=== PATIENT | male | born 1950 | race African-American/Black ===

== ENCOUNTER 2018-01-30 03:48 | Emergency (ER) | payer MEDICARE, OTHER ==
[~2018-01-30] VITALS: Ht 175.3 cm; Wt 106.6 kg
[2018-01-30 04:10] VITALS: BP 195/89
--- NOTE | 2018-01-30 04:10 | PHYS DOC ---
Past Medical History Past Medical History: Diabetes-Type II, Hypertension Past Surgical History: Cholecystectomy Smoking: Cigarettes (The patient is a nonsmoker.) Adult General Chief Complaint Chief Complaint: FLANK PAIN HPI HPI Patient is a pleasant 67-year-old male who presents to the emergency department for evaluation. He states for the past day and a half or so he has had some left flank pain which radiates around towards the left side of his back. He denies any other symptoms. He denies any nausea, vomiting, diarrhea, changes in bowel habits, hematuria, or dysuria. Has not had any midline back pain, numbness or weakness. He denies any chest pain shortness of breath. There are no alleviating or exacerbating factors to his symptoms. Review of Systems Review of Systems Constitutional: Denies fever or chills [] Eyes: Denies change in visual acuity, redness, or eye pain [] HENT: Denies nasal congestion or sore throat [] Respiratory: Denies cough or shortness of breath [] Cardiovascular: The patient denies any shortness of breath, chest pain, palpitations, or orthopnea [] GI: Denies nausea, vomiting, bloody stools or diarrhea [] : Denies dysuria or hematuria and denies groin pain or radiation of the pain towards the groin.[] Musculoskeletal: Denies back pain or joint pain [] Integument: Denies rash or skin lesions [] Neurologic: Denies headache, focal weakness or sensory changes [] Endocrine: Denies polyuria or polydipsia [] All other systems were reviewed and found to be within normal limits, except as documented in this note. Current Medications Current Medications Current Medications Medications (Trade) Dose Ordered Sig/Nicole Start Time Stop Time Status Last Admin Dose Admin Morphine Sulfate (Morphine Sulfate) 4 mg PRN Q15MIN PRN 01/30/18 04:15 01/31/18 04:14 01/30/18 04:49 4 MG Ondansetron HCl (Zofran) 4 mg 1X ONCE 01/30/18 04:30 01/30/18 04:31 DC 01/30/18 04:30 4 MG Sodium Chloride 1,000 ml @ 100 mls/hr Q10H 01/30/18 04:30 01/30/18 14:29 01/30/18 04:30 100 MLS/HR Allergies Allergies Allergies Coded Allergies Type Severity Reaction Last Updated Verified No Known Drug Allergies 01/30/18 No Physical Exam Physical Exam PHYSICAL EXAM: CONSTITUTIONAL: Well developed, well nourished HEAD: normocephalic, atraumatic EENT: PERRL, EOMI. Conjunctivae normal color, sclerae non-icteric; moist mucous membranes. NECK: Supple, non-tender; no meningismus. LUNGS: Lungs CTA, breathing even and unlabored. Normal air movement. HEART: Regular rate and rhythm, no murmur CHEST: No deformity; non-tender ABDOMEN: The abdomen is soft, there is mild left upper abdominal/left flank tenderness to palpation without rebound or guarding. The remainder the abdomen is soft and non-tender, no masses or bruits. Normal bowel sounds are present. EXTREM: Normal ROM; no deformity, no calf tenderness. Normal pulses palpable in all extremities. There is no pedal edema. SKIN: No rash; no diaphoresis NEURO: Alert; normal speech and cognition; CN's grossly intact; strength grossly intact without focal deficit. BACK: There is mild left-sided CVA TTP. Current Patient Data Vital Signs Vital Signs Date Time Temp Pulse Resp B/P (MAP) Pulse Ox O2 Delivery O2 Flow Rate FiO2 01/30/18 04:10 97.7 78 195/89 (124) 97 Room Air 97.7 Lab Values Laboratory Tests Test 01/30/18 04:01 White Blood Count 8.4 x10^3/uL (4.0-11.0) Red Blood Count 6.30 x10^6/uL (4.30-5.70) H Hemoglobin 13.4 g/dL (13.0-17.5) Hematocrit 42.2 % (39.0-53.0) Mean Corpuscular Volume 67 fL (79-100) L Mean Corpuscular Hemoglobin 21 pg (25-35) L Mean Corpuscular Hemoglobin Concent 32 g/dL (31-37) Red Cell Distribution Width 17.4 % (11.5-14.5) H Platelet Count 210 x10^3/uL (140-400) Neutrophils (%) (Auto) 67 % (31-73) Lymphocytes (%) (Auto) 16 % (24-48) L Monocytes (%) (Auto) 13 % (0-9) H Eosinophils (%) (Auto) 3 % (0-3) Basophils (%) (Auto) 1 % (0-3) Neutrophils # (Auto) 5.6 x10^3uL (1.8-7.7) Lymphocytes # (Auto) 1.4 x10^3/uL (1.0-4.8) Monocytes # (Auto) 1.1 x10^3/uL (0.0-1.1) Eosinophils # (Auto) 0.3 x10^3/uL (0.0-0.7) Basophils # (Auto) 0.1 x10^3/uL (0.0-0.2) Platelet Estimate Pending Urine Collection Type Clean catch Urine Color Yellow Urine Clarity Clear Urine pH 5.0 Urine Specific [place] 1.025 Urine Protein Negative mg/dL (NEG-TRACE) Urine Glucose (UA) Negative mg/dL (NEG) Urine Ketones (Stick) Negative mg/dL (NEG) Urine Blood Moderate (NEG) Urine Nitrite Negative (NEG) Urine Bilirubin Negative (NEG) Urine Urobilinogen Dipstick 1.0 mg/dL (0.2 mg/dL) Urine Leukocyte Esterase Moderate (NEG) Urine RBC 6-10 /HPF (0-2) Urine WBC 1-4 /HPF (0-4) Urine Squamous Epithelial Cells Occ /LPF Urine Bacteria 0 /HPF (0-FEW) Urine Mucus Mod /LPF Sodium Level 143 mmol/L (136-145) Potassium Level 4.2 mmol/L (3.5-5.1) Chloride Level 101 mmol/L (98-107) Carbon Dioxide Level 33 mmol/L (21-32) H Anion Gap 9 (6-14) Blood Urea Nitrogen 23 mg/dL (8-26) Creatinine 1.1 mg/dL (0.7-1.3) Estimated GFR (Cockcroft-Gault) 80.3 BUN/Creatinine Ratio 21 (6-20) H Glucose Level 89 mg/dL (70-99) Calcium Level 10.2 mg/dL (8.5-10.1) H Total Bilirubin 0.7 mg/dL (0.2-1.0) Aspartate Amino Transferase (AST) 17 U/L (15-37) Alanine Aminotransferase (ALT) 18 U/L (16-63) Alkaline Phosphatase 77 U/L (46-116) Troponin I Quantitative < 0.017 ng/mL (0.000-0.055) Total Protein 7.6 g/dL (6.4-8.2) Albumin 4.2 g/dL (3.4-5.0) Albumin/Globulin Ratio 1.2 (1.0-1.7) Lipase 126 U/L (73-393) Laboratory Tests 01/30/18 04:01 Laboratory Tests 01/30/18 04:01 EKG EKG [Normal sinus rhythm with a normal rate, normal axis, normal intervals, there are no acute ischemic ST/T changes.] Radiology/Procedures Radiology/Procedures [PROCEDURE: CT ABDOMEN PELVIS WO CONTRAST PQRS Compliance statement: One or more of the following individualized dose reduction techniques were utilized for this examination: 1. Automated exposure control. 2. Adjustment of the mA and/or kV according to patient size. 3. Use of iterative reconstruction technique. Indication:left flank pain TECHNIQUE: CT abdomen and pelvis without IV contrast with multiplanar reformats. COMPARISON: None FINDINGS: Limited evaluation of solid abdominal and pelvic organs due to lack of IV contrast. Heart is normal in size. No pericardial or pleural effusion. Clear lung bases. Noncontrast appearance of the liver, spleen, pancreas, adrenals within normal limits. 4.6 x 4.1 cm partially exophytic low attenuating lesion is seen in the posterior medial aspect of the right kidney. Punctate nonobstructing left renal stone measuring 7 mm. Obstructing 7 mm stone is seen in the left mid ureter causing moderate left-sided hydroureteronephrosis. Left perinephric inflammatory changes seen. No free pelvic fluid or ascites. No enlarged pelvic or retroperitoneal adenopathy. No bowel obstruction. Normal appendix. No pneumoperitoneum. No suspicious bony lesion. IMPRESSION: 1. Obstructing left mid ureteral stone with other nonobstructing left renal stone. 2. Right renal lesion most likely a simple to minimally comminuted cysts. However nonemergent ultrasound of the kidneys recommended for better evaluation.] Course & Med Decision Making Course & Med Decision Making Pertinent Labs and Imaging studies reviewed. (See chart for details) [5:40 AM: The patient's condition remained stable, and his pain is well- controlled at this time. His blood pressure improved from his initial arrival blood pressure, most recently 141/70. I discussed test results with the patient including the need for further outpatient evaluation of his right kidney. I discussed the etiology of his left flank pain, and the need for close urology follow-up. He is asymptomatic at this time, is showing no signs of infection, and appears comfortable. I believe outpatient follow-up is appropriate, although the size of some aches spontaneous passage unlikely. The patient will be started on Flomax to facilitate stone passage if it should move more distally , and the importance of prompt urology follow-up and return precautions were discussed in detail.] Dragon Disclaimer Dragon Disclaimer This electronic medical record was generated, in whole or in part, using a voice recognition dictation system. Departure Departure Impression: Primary Impression: Nephrolithiasis Disposition: HOME, SELF-CARE Condition: STABLE Referrals: JERICA BISWAS MD Patient Instructions: Kidney Stones Additional Instructions: Ibuprofen 400-600 mg every 6 hours as needed for pain. Use the prescribed pain medication as needed for pain not controlled by ibuprofen. This medication may cause drowsiness. Use caution while taking. Use of Flomax once daily, to help facilitate kidney stone passage of the stone should migrate further down towards the bladder. Further evaluation and follow-up with urology is warranted. Please call today to schedule an appointment. Scripts Hydrocodone/Apap 5-325 (NORCO 5-325 TABLET) 1 Each Tablet 1-2 TAB PO Q4-6HRS, #20 TAB Prov: BOB UPTON MD 01/30/18 Tamsulosin Hcl (FLOMAX) 0.4 Mg Cap.er.24h 1 CAP PO DAILY, #30 CAP 0 Refills Prov: BOB UPTON MD 01/30/18 BOB UPTON MD Jan 30, 2018 04:10
[2018-01-30] MEDS ORDERED: MORPHINE SULFATE 4 MG/ML VIAL. IV/SQ PRN (04:15)
[2018-01-30] MEDS ORDERED: ONDANSETRON PF 4 MG/2 ML VIAL. IV ONE (04:30)
[2018-01-30] MEDS ORDERED: IV NORMAL SALINE 1000ML BAG 1,000 ML IV SCH (04:30)
[2018-01-30 04:46] LABS: BASO # 0.1 x10^3/uL (0.0-0.2); BASO % 1 % (0-3); BILIRUBIN,URINE NEGATIVE (NEG); CLARITY,URINE CLEAR; COLOR,URINE YELLOW; EOS # 0.3 x10^3/uL (0.0-0.7); EOS % 3 % (0-3); HEMATOCRIT 42.2 % (39.0-53.0); HEMOGLOBIN 13.4 g/dL (13.0-17.5); LYMPH # 1.4 x10^3/uL (1.0-4.8); LYMPH % 16 % (24-48); MEAN CORPUSCULAR HEMOGLOBIN 21 pg (25-35); MEAN CORPUSCULAR HGB CONC 32 g/dL (31-37); MEAN CORPUSCULAR VOLUME 67 fL (79-100); MONO # 1.1 x10^3/uL (0.0-1.1); MONO % 13 % (0-9); NEUT # 5.6 x10^3uL (1.8-7.7); NEUT % 67 % (31-73); NITRITE,URINE NEGATIVE (NEG); PLATELET COUNT 210 x10^3/uL (140-400); PROTEIN,URINE NEGATIVE (NEG-TRACE); RED CELL DISTRIBUTION WIDTH 17.4 % (11.5-14.5); WHITE BLOOD COUNT 8.4 x10^3/uL (4.0-11.0)
[2018-01-30 04:55] LABS: BACTERIA,URINE 0 /HPF (0-FEW); SQUAMOUS EPITHELIAL CELL,UR OCC /LPF
--- NOTE | 2018-01-30 04:57 | RAD ---
PQRS Compliance statement: One or more of the following individualized dose reduction techniques were utilized for this examination: 1. Automated exposure control. 2. Adjustment of the mA and/or kV according to patient size. 3. Use of iterative reconstruction technique. Indication:left flank pain TECHNIQUE: CT abdomen and pelvis without IV contrast with multiplanar reformats. COMPARISON: None FINDINGS: Limited evaluation of solid abdominal and pelvic organs due to lack of IV contrast. Heart is normal in size. No pericardial or pleural effusion. Clear lung bases. Noncontrast appearance of the liver, spleen, pancreas, adrenals within normal limits. 4.6 x 4.1 cm partially exophytic low attenuating lesion is seen in the posterior medial aspect of the right kidney. Punctate nonobstructing left renal stone measuring 7 mm. Obstructing 7 mm stone is seen in the left mid ureter causing moderate left-sided hydroureteronephrosis. Left perinephric inflammatory changes seen. No free pelvic fluid or ascites. No enlarged pelvic or retroperitoneal adenopathy. No bowel obstruction. Normal appendix. No pneumoperitoneum. No suspicious bony lesion. IMPRESSION: 1. Obstructing left mid ureteral stone with other nonobstructing left renal stone. 2. Right renal lesion most likely a simple to minimally comminuted cysts. However nonemergent ultrasound of the kidneys recommended for better evaluation. Electronically signed by: Prashanth Jewell DO (01/30/2018 4:54 AM) [id number]
[2018-01-30 04:59] LABS: CALCIUM 10.2 mg/dL (8.5-10.1); CREATININE 1.1 mg/dL (0.7-1.3); GFR 80.3; POTASSIUM 4.2 mmol/L (3.5-5.1)
[2018-01-30 05:06] LABS: ALBUMIN 4.2 g/dL (3.4-5.0); ALBUMIN/GLOBULIN RATIO 1.2 (1.0-1.7); TOTAL BILIRUBIN 0.7 mg/dL (0.2-1.0); TOTAL PROTEIN 7.6 g/dL (6.4-8.2)
--- NOTE | 2018-01-30 05:13 | EKG ---
[facility] [address] [place] [address] Test Date: 2018-01-30 Test Time: 04:19:34 Pat Name: XIOMY SHEARER Department: Room: Gender: Burr Filer: PEDRO : 1950 Requested By: BOB UPTON Order Number: [id number] Reading MD: Gil Castellano Measurements Intervals [place] Rate: 72 P: 49 TN: 204 QRS: 13 QRSD: 78 T: 27 QT: 368 QTc: 408 Interpretive Statements SINUS RHYTHM Electronically Signed On 02-02-2018 12:06:31 CDT by Gil Castellano
[2018-01-30] MEDS ORDERED: TAMS0.4C97 PO (05:43)
[2018-01-30] MEDS ORDERED: HYDR-971 PO (05:44)
[2018-01-30 09:53] LABS: HYPOCHROMIA MOD; PLT ESTIMATE ADEQUATE (ADEQUATE)
[2018-01-30 09:54] LABS: ANISOCYTOSIS SLIGHT; MICROCYTOSIS MARKED
== END 2018-01-30 06:25 | disposition home or self-care (01) ==
LOC: ER 03:48
DX: N13.2 Hydronephrosis with renal and ureteral calculous obstruction (principal); I10 Essential (primary) hypertension; E11.9 Type 2 diabetes mellitus without complications; Z90.49 Acquired absence of other specified parts of digestive tract
CPT/HCPCS: 36415; 74176; 80053; 81001; 83690; 84484; 85025; 87086; 93005; 96374; 96375; 99285; J2270; J2405; J7030

== ENCOUNTER 2021-03-26 21:24 | Emergency (ER) | payer BC, MEDICARE ==
[~2021-03-26] VITALS: Ht 175.3 cm; Wt 110.0 kg
[~2021-03-26 21:24] MED LIST: HYDR-3164 PO; TAMS0.4C97 PO
[2021-03-26] MEDS ORDERED: CLINDAMYCIN 600MG PREMIX 50 ML IV ONE (23:00)
[2021-03-26] MEDS ORDERED: HYDROmorphone 2 MG/ML VIAL IVP ONE (23:00)
[2021-03-26 23:06] LABS: BASO # 0.1 x10^3/uL (0.0-0.2); BASO % 1 % (0-3); EOS # 0.2 x10^3/uL (0.0-0.7); EOS % 2 % (0-3); HEMATOCRIT 40.8 % (39.0-53.0); HEMOGLOBIN 12.7 g/dL (13.0-17.5); LYMPH # 1.1 x10^3/uL (1.0-4.8); LYMPH % 10 % (24-48); MEAN CORPUSCULAR HEMOGLOBIN 21 pg (25-35); MEAN CORPUSCULAR HGB CONC 31 g/dL (31-37); MEAN CORPUSCULAR VOLUME 67 fL (79-100); MONO # 0.9 x10^3/uL (0.0-1.1); MONO % 9 % (0-9); NEUT # 8.4 x10^3/uL (1.8-7.7); NEUT % 79 % (31-73); PLATELET COUNT 284 x10^3/uL (140-400); RED BLOOD COUNT 6.11 x10^6/uL (4.30-5.70); RED CELL DISTRIBUTION WIDTH 16.9 % (11.5-14.5); WHITE BLOOD COUNT 10.6 x10^3/uL (4.0-11.0)
--- NOTE | 2021-03-26 23:26 | RAD ---
EXAMINATION: CT NECK SOFT TISSUE WITHOUT CONTRAST CLINICAL HISTORY: Left maxillary dental abscess TECHNIQUE: Noncontrast axial images obtained through the cervical soft tissues with sagittal and felipe nal planar reconstructions. CT Dose Reduction Employed: One or more of the following individualized dose reduction techniques wer e utilized for this examination: 1. Automated exposure control 2. Adjustment of the mA and/or kV ac cording to patient size 3. Use of iterative reconstruction technique. COMPARISON: None. FINDINGS: Prominent streak artifact related to multiple dental fillings limit evaluation at the level of the mo uth. Tiny periapical cysts at what is thought to represent the left maxillary second bicuspid and left man dibular first molar. Mild hypoattenuation in the mandible at the expected level of the posterior ac ibular molars bilaterally. No no definitively visualize dental abscess. Mild mucoperiosteal thickening/secretions in the inferior bilateral maxillary sinuses. Multiple prominent bilateral cervical lymph nodes, likely reactive. No organized soft tissue collecti on. Vascular calcifications. Multilevel cervicothoracic degenerative changes. IMPRESSION: Tiny left maxillary and mandibular periapical cysts without definitive evidence of a dental abscess o n limited evaluation as described. Electronically signed by: Jasmeet Zavala DO (03/26/2021 11:24 PM) [facility]
[2021-03-26 23:30] VITALS: BP_DIAS 73
[2021-03-27 00:04] VITALS: BP_SYST 138
[2021-03-27 00:12] LABS: GFR 88.9; POTASSIUM 4.2 mmol/L (3.5-5.1)
[2021-03-27 00:26] LABS: PLT ESTIMATE ADEQUATE (ADEQUATE)
[2021-03-27 00:28] LABS: ANISOCYTOSIS MOD; HYPOCHROMIA MOD; MICROCYTOSIS PRESENT; POIKILOCYTOSIS PRESENT; ROULEAUX PRESENT
[2021-03-27] MEDS ORDERED: CLIN150C16 PO (00:28)
--- NOTE | 2021-03-27 00:28 | PHYS DOC ---
Past Medical History Past Medical History: Hypertension (ANEL HASKINS APRN) Past Surgical History: Cholecystectomy (ANEL HASKINS APRN) Smoking Status: Never Smoker Alcohol Use: Rarely Drug Use: None (ANEL HASKINS APRN) General Adult EDM: Chief Complaint: DENTAL PROBLEM HPI: HPI: Patient is a 70 year old male presents to the emergency department concerning increased swelling and pain to his face and jaw on the left. Patient reports he is being treated by dentist for a dental infection. Patient states he has completed a 2-week regimen of Keflex, started on Keflex and took it only for a few more days when his dentist changed his antibiotic regimen to Augmentin. Patient reports he took 2 doses of Augmentin today and 1 dose of [place] for pain, patient reports he is not getting any relief and feels his face is getting more swollen and more painful. Patient comes into the emergency department today for a reevaluation. Patient denies throat discomfort or difficulty breathing or swallowing. Denies tongue swelling. Denies recent fever or chills. Denies other physical complaints or physical concerns. (ANEL HASKINS APRN) Review of Systems: Review of Systems: 14 body systems of review of systems have been reviewed. See HPI for pertinent positives and negative responses, otherwise all other systems are negative, nonpertinent or noncontributory. Constitutional: Negative except as outlined in HPI above. Skin: Negative except as outlined in HPI above. Eyes: Negative except as outlined in HPI above. HENT: Negative except as outlined in HPI above. Respiratory: Negative except as outlined in HPI above. Cardiovascular: Negative except as outlined in HPI above. GI: Negative except as outlined in HPI above. : Negative except as outlined in HPI above. Musculoskeletal: Negative except as outlined in HPI above. Integument: Negative except as outlined in HPI above. Neurologic: Negative except as outlined in HPI above. Endocrine: Negative except as outlined in HPI above. Lymphatic: Negative except as outlined in HPI above. Psychiatric: Negative except as outlined in HPI above. (ANEL HASKINS APRN) Heart Score: C/O Chest Pain: No Risk Factors: Risk Factors: DM, Current or recent (<one month) smoker, HTN, HLP, family history of CAD, obesity. Risk Scores: Score 0 - 3: 2.5% MACE over next 6 weeks - Discharge Home Score 4 - 6: 20.3% MACE over next 6 weeks - Admit for Clinical Observation Score 7 - 10: 72.7% MACE over next 6 weeks - Early Invasive Strategies (ANEL HASKINS APRN) Current Medications: Current Medications Medications (Trade) Dose Ordered Sig/Nicole Start Time Stop Time Status Last Admin Dose Admin Clindamycin Phosphate 50 ml @ 100 mls/hr 1X ONCE 03/26/21 23:00 03/26/21 23:29 DC 03/26/21 23:06 100 MLS/HR Hydromorphone HCl (Dilaudid) 1 mg 1X ONCE 03/26/21 23:00 03/26/21 23:01 DC 03/26/21 23:10 1 MG (ANEL HASKINS APRN) Allergies: Allergies: Allergies Coded Allergies Type Severity Reaction Last Updated Verified lisinopril Allergy Severe HEAVY BREATHING 03/26/21 Yes iodine Allergy Intermediate SCRATCHY THROAT. 03/26/21 Yes shellfish derived Allergy Intermediate SCRATCY THROAT 03/26/21 Yes (ANEL HASKINS APRN) Physical Exam: PE: Constitutional: Well developed, well nourished, no acute distress, non-toxic appearance. 30-year-old male in no apparent distress. HENT: Normocephalic, atraumatic. Oropharynx pink, no deep tissue infectious process appreciated, no uvular edema or deviation, no laryngeal edema, bilateral tonsils within normal limits. The tongue is not swollen. Marked dental caries with swollen upper and lower gums on the left. No purulent drainage or draining abscess appreciated in the oral cavity. No drooling, no trismus. Bilateral TMs within normal limits. Marked maxillary facial swelling on the left skin erythematous and appear. No lymphadenopathy of the head or neck appreciated. Patient is speaking in normal voice tones. Eyes: Conjunctiva normal, no discharge. Satisfactory 6 cardinal eye movements, no periorbital edema appreciated Neck: Normal range of motion, no stridor. Cardiovascular: No cyanosis appreciated, distal cap refill less than 2 seconds. Lungs & Thorax: Patient is in no respiratory distress, no audible adventitious lung sounds appreciated. Abdomen: Nontender, no abnormalities noted. Skin: Warm, dry, no erythema, no rash. Back: No tenderness, no deformities. Extremities: No tenderness, no cyanosis, no clubbing, ROM intact, no edema. Neurologic: Alert and oriented X 3, normal motor function, normal sensory function, no focal deficits noted. Psychologic: Affect normal, judgement normal, mood normal. (ANEL HASKINS APRN) Current Patient Data: Labs: Laboratory Tests Test 03/26/21 22:50 White Blood Count 10.6 x10^3/uL (4.0-11.0) Red Blood Count 6.11 x10^6/uL (4.30-5.70) H Hemoglobin 12.7 g/dL (13.0-17.5) L Hematocrit 40.8 % (39.0-53.0) Mean Corpuscular Volume 67 fL (79-100) L Mean Corpuscular Hemoglobin 21 pg (25-35) L Mean Corpuscular Hemoglobin Concent 31 g/dL (31-37) Red Cell Distribution Width 16.9 % (11.5-14.5) H Platelet Count 284 x10^3/uL (140-400) Neutrophils (%) (Auto) 79 % (31-73) H Lymphocytes (%) (Auto) 10 % (24-48) L Monocytes (%) (Auto) 9 % (0-9) Eosinophils (%) (Auto) 2 % (0-3) Basophils (%) (Auto) 1 % (0-3) Neutrophils # (Auto) 8.4 x10^3/uL (1.8-7.7) H Lymphocytes # (Auto) 1.1 x10^3/uL (1.0-4.8) Monocytes # (Auto) 0.9 x10^3/uL (0.0-1.1) Eosinophils # (Auto) 0.2 x10^3/uL (0.0-0.7) Basophils # (Auto) 0.1 x10^3/uL (0.0-0.2) Platelet Estimate Pending Laboratory Tests 03/26/21 22:50 Vital Signs: Vital Signs Date Time Temp Pulse Resp B/P (MAP) Pulse Ox O2 Delivery O2 Flow Rate FiO2 03/26/21 23:10 16 99 03/26/21 21:53 99.1 86 192/85 (120) Room Air 99.1 (ANEL HASKINS APRN) EKG: EKG: [] (ANEL HASKINS APRN) Radiology/Procedures: Radiology/Procedures: [] (ANEL HASKINS APRN) Course & Med Decision Making: Course & Med Decision Making Pertinent Labs and Imaging studies reviewed. (See chart for details) 70-year-old male, vital signs reviewed, presents emergency department concerning increased swelling and pain from dental infection. Physical examination concerning for facial cellulitis versus deep tissue infectious process from dental infection. Will order CBC, BMP, blood cultures x2, CT soft tissue neck with contrast maxillofacial CT with IV contrast to rule out deep tissue abscess, Abbey's angina with tracking. Will give 1 mg Dilaudid for 10 out of 10 pain, 600 mg clindamycin IV. Patient reports a allergy to iodine, will perform CT without contrast. Patient's labs are unremarkable for systemic infectious process, chemistries all within normal limits. CT imaging limited study findings, no dental abscess identified. Upon reevalua tion of the patient, patient reports IV pain medication is helping, discussed and offered admission to the hospital related to failed outpatient antibiotic therapy. Patient states he does not want to be admitted, questions failed outpatient therapy as he just started the change in his antibiotic regimen today, and only took oral pain medications once. Discussed with patient he has been given IV clindamycin, will prescribe oral clindamycin dose, did not take Augmentin antibiotic therapy unless otherwise directed by his dentist, call dentist tomorrow to let him know he was seen in the emergency department and started on clindamycin, immediate timely reevaluation by dentist, strict return to ER precautions and concerns, patient gave verbal understanding of is amenable to ED discharge planning. Again reiterated offered admission to hospital for ongoing antibiotic treatment, patient declined, elected to go home and try further outpatient therapy. Discussed with the patient all findings and diagnostic testing as well as the need to follow-up with their primary care provider for further evaluation and treatment or return to the ED if any new or worsening symptoms. Strict return precautions were also discussed at length, the patient voiced understanding and agreement with the discharge planning. The patient was nontoxic in appearance, in no apparent distress, and hemodynamically stable at the time of disposition. (ANEL HASKINS APRN) Course & Med Decision Making Patients Care and treatment plan provided by ER Nurse Practitioner. I was a juan for consult. Patient's chart reviewed. (ADIEL WEBER I DO) Kevin Disclaimer: Kevin Disclaimer: This electronic medical record was generated, in whole or in part, using a voice recognition dictation system. (ANEL HASKINS APRN) Departure Departure Impression: Primary Impression: Dental infection Additional Impression: Facial swelling Disposition: HOME / SELF CARE / HOMELESS Condition: GOOD Referrals: CAROLINA LEIJA DO (PCP) Patient Instructions: Dental Pain Additional Instructions: You were seen today in the emergency department for dental pain, and evaluation of your ongoing dental infectious process. A CT scan was performed today that did not show concerning findings of deep tissue abscess. However as we discussed this scan was limited related to your allergy to iodine. The lab work drawn today did not show any concerning findings of systemic infection or systemic electrolyte imbalances. You were given IV clindamycin 600 mg today in the emergency department. As we discussed stop taking the amoxicillin clavulanic acid medication and start the new clindamycin medication as prescribed 450 mg 3 times a day for the next 14 days. As we discussed please call your dentist tomorrow for reevaluation as soon as possible. Let him know that you were seen in the emergency department and started on clindamycin at that you stopped taking the recommended Augmentin. Please follow all dental rec ommendations as they are the specialist for these types of infections and treatment. Return to the emergency department for worsening symptoms or other concerns. Please continue to take your prescribed pain medications along with ibuprofen for additional aid in pain and swelling. Thank you for visiting our Emergency Department. It was a pleasure taking care of you today in the emergency department and we appreciate you trusting us with your care. If any additional problems come up don't hesitate to return to visit us. Please follow up with your primary care provider so they can plan additional care if needed and know about the problem that you had. If symptoms worsen come back to the [facility] ency Department. Any concerning symptoms that start such as chest pain, shortness of air, weakness or numbness on one side of the body, running high fevers or any other concerning symptoms return to the ER. EMERGENCY DEPARTMENT GENERAL DISCHARGE INSTRUCTIONS Thank you for coming to [facility] Emergency Department (ED) today and trusting us with you care. We trust that you had a positive experience in our Emergency Department. If you wish to speak to the department management, you may call the Director at [phone]. YOUR FOLLOW UP INSTRUCTIONS ARE FOLLOWS: 1. Do you have a private Doctor? If you do not have a private doctor, please ask for a resource list of physicians or clinics that may be able to assist you with follow up care. 2. The Emergency Physicain has interpreted your x-rays. The X-Ray specialist will also review them. If there is a change in the findings, you will be notified in 48 hours when at all possible. 3. A lab test or culture has been done, your results will be reviewed and you will be notified if you need a change in treatment. ADDITIONAL INSTRUCTIONS AND INFORMATION: 1. Your care today has been supervised by a physician who is specially trained in emergency care. Many problems require more than one evaluation for a complete diagnosis and treatment. We recommend that you schedule your follow up appointment as recommended to ensure complete treatment of you illness or injury. If you are unable to obtain follow up care and continue to have a problem, or if your condition worsens, we recommend that you return to the ED. 2. We are not able to safely determine your condition over the phone nor are we able to give sound medical advice over the phone. For these safety reasons, if you call for medical advice we will ask you to come to the ED for further evaluation. 3. If you have any questions regarding these discharge instructions please call the ED at [phone]. SAFETY INFORMATION: In the interest of safety, wellness, and injury prevention; we encourage you to wear your sealbelt, if you smoke; quite smoking, and we encourage family to use a protective helmet for bicycling and other sporting events that present an increased risk for head injury. IF YOUR SYMPTOMS WORSEN OR NEW SYMPTOMS DEVELOP, OR YOU HAVE CONCERNS ABOUT YOUR CONDITION; OR IF YOUR CONDITION WORSENS WHILE YOU ARE WAITING FOR YOUR FOLLOW UP APPOINTMENT; EITHER CONTACT YOUR PRIMARY CARE DOCTOR, THE PHYSICIAN WHOSE NAME AND NUMBER YOU WERE GIVEN, OR RETURN TO THE ED IMMEDIATELY. Scripts Clindamycin Hcl (CLINDAMYCIN HCL) 150 Mg Capsule 3 CAP PO TID for dental infection for 14 Days, #126 CAP 0 Refills Take 450 mg by mouth 3 times a day for the next 14 days. Prov: ANEL HASKINS APRN 03/27/21 ANEL HASKINS APRN Mar 27, 2021 00:28 ADIEL WEBER DO Mar 27, 2021 03:01
== END 2021-03-27 00:40 | disposition home or self-care (01) ==
LOC: ER 21:24
DX: K04.7 Periapical abscess without sinus (principal); R22.0 Localized swelling, mass and lump, head; Z88.6 Allergy status to analgesic agent; Z91.013 Allergy to seafood; Z88.8 Allergy status to other drugs, medicaments and biological substances
CPT/HCPCS: 36415; 70490; 80048; 85025; 87040; 96365; 96375; 99285; J1170; J3490